=== PATIENT | male | born 1970 | race Two or more races ===

== ENCOUNTER 2020-01-03 11:17 | Inpatient (IN) | payer BC, MEDICAID, OTHER ==
[~2020-01-03] VITALS: Ht 167.6 cm; Wt 95.1 kg
[2020-01-03] MEDS ORDERED: SODIUM CHLORIDE 0.9% 1,000 ML IVB ONE (11:59)
[2020-01-03] MEDS ORDERED: PROCHLORPERAZINE EDISYLATE 5 MG/ML 2ML VIAL IV ONE (12:45)
[2020-01-03 13:06] LABS: Basophils # (auto) 0.1 10 ^3/uL (0-0.2); Basophils % (auto) 0.5 % (0.0-2.0); Eosinophils # (auto) 0.1 10 ^3/uL (0-0.8); Eosinophils % (auto) 0.4 % (0.0-7.0); Hematocrit 49.8 % (41.0-53.0); Hemoglobin 17.2 g/dL (13.5-17.5); Lymphocytes # (auto) 1.6 10 ^3/uL (0.4-5.4); Lymphocytes % (auto) 11.9 % (10.0-50.0); Mean Corpuscular Hemoglobin 30.7 pg (28.0-32.0); Mean Corpuscular Hgb Conc. 34.6 g/dL (32.0-36.0); Mean Corpuscular Volume 88.9 fL (80.0-100.0); Monocytes # (auto) 0.8 10 ^3/uL (0-1.3); Monocytes % (auto) 5.8 % (0.0-12.0); Neutrophils % (auto) 81.4 % (37.0-80.0); Nucleated Red Blood Cells % 0.8 %; Platelet Count (auto) 222 10^3/uL (140-450); Red Blood Cells 5.61 10^6/uL (4.5-5.90); Red Cell Distribution Width 13.3 % (11.8-14.3); White Blood Cell 13.5 10^3/uL (4.4-10.8)
[2020-01-03 13:23] LABS: Albumin 3.7 g/dL (3.4-5.0); Anion Gap 7 (5-15); Blood Urea Nitrogen 19 mg/dL (7-18); Calcium 7.7 mg/dL (8.5-10.1); Carbon Dioxide 22 mmol/L (21-32); Chloride 112 mmol/L (98-107); Glucose 133 mg/dL (74-106); Magnesium 2.2 mg/dL (1.6-2.6); Potassium 3.4 mmol/L (3.5-5.1); Sodium 141 mmol/L (136-145)
[2020-01-03 13:29] LABS: Alanine Aminotransferase 73 U/L (16-61); Alkaline Phosphatase 111 U/L (45-117); Aspartate Aminotransferase 36 U/L (15-37); BUN/Creatinine Ratio 20.4; Bilirubin, Total 0.8 mg/dL (0.2-1.0); GFR African American 110 mL/min; GFR Non-African American 91 mL/min; Total Protein 7.2 g/dL (6.4-8.2)
[2020-01-03] MEDS ORDERED: POTASSIUM EFFERVESENT TAB 25 MEQ PO ONE (13:45)
[2020-01-03 13:49] LABS: Urine WBC None Seen /hpf (0 - 3)
[2020-01-03 14:07] LABS: Urine Bacteria NONE SEEN /hpf (None Seen); Urine Blood Negative /uL (Negative); Urine Mucus FEW (None Seen); Urine Specific Gravity 1.018 (1.001-1.035)
[2020-01-03] MEDS ORDERED: LORazepam 2MG/ML-1ML VIAL IV ONE (14:15)
[2020-01-03] MEDS ORDERED: MECLIZINE HCL 25 MG TAB PO ONE ×2 (14:15→17:30)
[2020-01-03] MEDS ORDERED: FUROSEMIDE 20 MG/2 ML VIAL IV ONE (18:45)
[2020-01-03] MEDS ORDERED: ONDANSETRON HCL 4 MG/2 ML VIAL IV PRN (20:15)
[2020-01-03] MEDS ORDERED: ACETAMINOPHEN 500 MG TAB PO PRN (20:15)
[2020-01-03] MEDS ORDERED: MORPHINE SULF INJ 2 MG/ML SYRINGE 1ML IV PRN ×2 (20:15)
[2020-01-03] MEDS ORDERED: HYDROcodone-ACET 5/325MG TAB PO PRN (20:15)
[2020-01-03] MEDS ORDERED: NITROGLYCERIN 0.4 MG SL TAB SL PRN (20:15)
[2020-01-03 21:30] VITALS: BP 123/67
[2020-01-03] MEDS: MECLIZINE HCL 25 MG TAB PO SCH (21:58)
[2020-01-03 22:10] VITALS: BP 123/67
[2020-01-04 04:28] VITALS: BP 109/63
[2020-01-04] MEDS: MECLIZINE HCL 25 MG TAB PO SCH ×4 (05:56→22:18)
[2020-01-04 09:00] VITALS: BP 126/71
[2020-01-04 13:00] VITALS: BP 107/72
[2020-01-04 15:46] LABS: Basophils # (auto) 0.1 10 ^3/uL (0-0.2); Basophils % (auto) 0.7 % (0.0-2.0); Eosinophils # (auto) 0.2 10 ^3/uL (0-0.8); Eosinophils % (auto) 2.1 % (0.0-7.0); Hematocrit 50.2 % (41.0-53.0); Hemoglobin 17.3 g/dL (13.5-17.5); Lymphocytes # (auto) 1.7 10 ^3/uL (0.4-5.4); Lymphocytes % (auto) 20.7 % (10.0-50.0); Mean Corpuscular Hemoglobin 30.5 pg (28.0-32.0); Mean Corpuscular Hgb Conc. 34.4 g/dL (32.0-36.0); Mean Corpuscular Volume 88.5 fL (80.0-100.0); Monocytes # (auto) 0.6 10 ^3/uL (0-1.3); Monocytes % (auto) 7.5 % (0.0-12.0); Neutrophils # (auto) 5.8 10 ^3/uL (1.6-8.6); Nucleated Red Blood Cells % 0.2 %; Platelet Count (auto) 227 10^3/uL (140-450); Red Blood Cells 5.67 10^6/uL (4.5-5.90); Red Cell Distribution Width 13.3 % (11.8-14.3); White Blood Cell 8.4 10^3/uL (4.4-10.8)
[2020-01-04 16:03] LABS: Calcium 8.1 mg/dL (8.5-10.1); Magnesium 2.6 mg/dL (1.6-2.6); Potassium 3.3 mmol/L (3.5-5.1)
[2020-01-04 16:07] LABS: BUN/Creatinine Ratio 15.6; Phosphorus 2.4 mg/dL (2.5-4.90)
[2020-01-04 17:00] VITALS: BP 142/80
[2020-01-04] MEDS ORDERED: POTASSIUM PHOSPHATE 22 MEQ in SODIUM CHL 0.9% 100 ML IV ONE (18:00)
[2020-01-04] MEDS ORDERED: POTASSIUM CHL 20 Meq TABLET PO ONE (18:00)
[2020-01-04] MEDS ORDERED: CYANOCOBALAMIN (B-12) 1000 MCG/1 ML VIAL SUBCUT ONE ×2 (18:00→18:30)
[2020-01-04] MEDS ORDERED: LORazepam 2MG/ML-1ML VIAL IV PRN (18:30)
[2020-01-04 22:00] VITALS: BP 139/86
[2020-01-04] MEDS ORDERED: ATORVASTATIN 20 MG TAB PO SCH ×2 (22:00)
[2020-01-05 04:59] VITALS: BP 135/84
[2020-01-05] MEDS: MECLIZINE HCL 25 MG TAB PO SCH ×2 (05:43→14:27)
[2020-01-05 07:07] LABS: BUN/Creatinine Ratio 19.5; Calcium 8.1 mg/dL (8.5-10.1); Potassium 3.5 mmol/L (3.5-5.1)
[2020-01-05 09:00] VITALS: BP 130/77
[2020-01-05] MEDS ORDERED: ASPirin 81 mg TAB PO SCH (10:00)
[2020-01-05] MEDS ORDERED: CYANOCOBALAMIN (B-12) 1000 MCG/1 ML VIAL SUBCUT SCH (10:00)
[2020-01-05 13:00] VITALS: BP 141/89
[2020-01-05] MEDS ORDERED: POTASSIUM CHL 20 Meq TABLET PO ONE (13:00)
== END 2020-01-05 16:20 | disposition home or self-care (01) | DRG 149 ==
LOC: EDBD 11:17 → ER 11:17 → OVERFLOW 11:18 → WEST WING 21:10
PROVIDERS: ADMIT Nurse Practitioner Acute Care; ATTEND Internal Medicine
DX: H81.10 Benign paroxysmal vertigo, unspecified ear (principal); E87.6 Hypokalemia; E11.65 Type 2 diabetes mellitus with hyperglycemia; F17.210 Nicotine dependence, cigarettes, uncomplicated; E78.5 Hyperlipidemia, unspecified; D72.829 Elevated white blood cell count, unspecified; E66.9 Obesity, unspecified; E53.8 Deficiency of other specified B group vitamins; Z83.3 Family history of diabetes mellitus; Z90.49 Acquired absence of other specified parts of digestive tract; Z82.49 Family history of ischemic heart disease and other diseases of the circulatory system; Z68.33 Body mass index [BMI] 33.0-33.9, adult
CPT/HCPCS: 36415; 70450; 70545; 70551; 71045; 80048; 80053; 80061; 81001; 82607; 83036; 83735; 84100; 84443; 84484; 85025; 93005; 93306; 93886; 96361; 96365; 96375; G0378

== ENCOUNTER → 2020-04-29 | Outpatient (CLI) | payer BC ==
[2020-04-29 09:52] LABS: BUN/Creatinine Ratio 21.9; Bilirubin, Total 1.1 mg/dL (0.2-1.0); CRP High Sensitivity 0.06 mg/dL (< 0.3); Calcium 8.8 mg/dL (8.5-10.1); Total Protein 7.5 g/dL (6.4-8.2)
== END | disposition home or self-care (01) ==
LOC: LAB 08:50
PROVIDERS: ATTEND Internal Medicine
DX: Z12.5 Encounter for screening for malignant neoplasm of prostate (principal); M19.012 Primary osteoarthritis, left shoulder; M54.2 Cervicalgia; R42 Dizziness and giddiness; K76.0 Fatty (change of) liver, not elsewhere classified
CPT/HCPCS: 36415; 80053; 80061; 84153; 85652; 86141

== ENCOUNTER → 2020-10-02 | Outpatient (CLI) | payer MEDICAID | END | disposition home or self-care (01) | LOC: LAB 09:26 | PROVIDERS: ATTEND Internal Medicine | DX: E78.5 Hyperlipidemia, unspecified (principal); R00.2 Palpitations; R42 Dizziness and giddiness | CPT/HCPCS: 36415; 85379; 85652; 86141 ==

== ENCOUNTER → 2022-06-15 | Outpatient (CLI) | payer MEDICAID ==
[2022-06-15 09:23] LABS: Basophils # (auto) 0.1 10 ^3/uL (0-0.2); Eosinophils # (auto) 0.2 10 ^3/uL (0-0.8); Lymphocytes # (auto) 1.6 10 ^3/uL (0.4-5.4); Mean Corpuscular Hemoglobin 30.1 pg (28.0-32.0); Monocytes # (auto) 0.6 10 ^3/uL (0-1.3); Monocytes % (auto) 7.5 % (0.0-12.0); Neutrophils # (auto) 4.9 10 ^3/uL (1.6-8.6); Nucleated Red Blood Cells % 0.1 %; White Blood Cell 7.4 10^3/uL (4.4-10.8)
[2022-06-15 09:25] LABS: Basophils % (auto) 0.8 % (0.0-2.0); Eosinophils % (auto) 2.9 % (0.0-7.0); Hematocrit 50.7 % (41.0-53.0); Hemoglobin 17.5 g/dL (13.5-17.5); Lymphocytes % (auto) 22.2 % (10.0-50.0); Mean Corpuscular Hgb Conc. 34.6 g/dL (32.0-36.0); Neutrophils % (auto) 66.6 % (37.0-80.0); Red Blood Cells 5.83 10^6/uL (4.5-5.90)
[2022-06-15 09:30] LABS: Urine Bacteria NONE SEEN /hpf (None Seen); Urine Blood Negative /uL (Negative); Urine Specific Gravity 1.017 (1.001-1.035); Urine WBC <1 /hpf (0 - 3)
[2022-06-15 09:52] LABS: Calcium 8.8 mg/dL (8.5-10.1); Potassium 3.9 mmol/L (3.5-5.1); Uric Acid 5.9 mg/dL (3.5-7.2)
[2022-06-15 09:57] LABS: BUN/Creatinine Ratio 18.8; Bilirubin, Total 1.1 mg/dL (0.2-1.0); Total Protein 7.6 g/dL (6.4-8.2)
== END | disposition home or self-care (01) ==
LOC: LAB 09:02
PROVIDERS: ATTEND Internal Medicine
DX: I10 Essential (primary) hypertension (principal); M25.519 Pain in unspecified shoulder; R42 Dizziness and giddiness; E66.9 Obesity, unspecified; R51.0 Headache with orthostatic component, not elsewhere classified
CPT/HCPCS: 36415; 80053; 80061; 81001; 84153; 84550; 85025; 85652

== ENCOUNTER → 2022-07-30 | Outpatient (CLI) | payer MEDICAID ==
[2022-07-30 11:52] LABS: Albumin 4.3 g/dL (3.4-5.0)
[2022-07-30 11:56] LABS: Bilirubin, Direct 0.2 mg/dL (0-0.2); Bilirubin, Total 1.4 mg/dL (0.2-1.0); Total Protein 7.6 g/dL (6.4-8.2)
== END | disposition home or self-care (01) ==
LOC: LAB 10:36
PROVIDERS: ATTEND Internal Medicine
DX: E78.5 Hyperlipidemia, unspecified (principal); N52.9 Male erectile dysfunction, unspecified
CPT/HCPCS: 36415; 80076; 84403

== ENCOUNTER → 2022-10-05 | Outpatient (CLI) | payer MEDICAID ==
[2022-10-05 11:17] LABS: Albumin 4.2 g/dL (3.4-5.0); Bilirubin, Direct 0.3 mg/dL (0-0.2); Bilirubin, Total 1.2 mg/dL (0.2-1.0); Total Protein 7.5 g/dL (6.4-8.2)
== END | disposition home or self-care (01) ==
LOC: LAB 09:32
PROVIDERS: ATTEND Internal Medicine
DX: I10 Essential (primary) hypertension (principal)
CPT/HCPCS: 36415; 80061; 80076; 83036

== ENCOUNTER → 2024-09-25 | Outpatient (CLI) | payer MEDICAID ==
[2024-09-25 09:23] LABS: Urine Bacteria None Seen /hpf (None Seen)
[2024-09-25 09:35] LABS: Basophils # (auto) 0.1 10 ^3/uL (0-0.2); Eosinophils # (auto) 0.2 10 ^3/uL (0-0.8); Hemoglobin 18.2 g/dL (13.5-17.5); Mean Corpuscular Volume 88.3 fL (80.0-100.0); Monocytes # (auto) 0.6 10 ^3/uL (0-1.3); Monocytes % (auto) 7.5 % (0.0-12.0)
[2024-09-25 09:37] LABS: Basophils % (auto) 0.8 % (0.0-2.0); Hematocrit 52.6 % (41.0-53.0); Lymphocytes # (auto) 1.6 10 ^3/uL (0.4-5.4); Mean Corpuscular Hemoglobin 30.5 pg (28.0-32.0); Mean Corpuscular Hgb Conc. 34.6 g/dL (32.0-36.0); Neutrophils # (auto) 5.1 10 ^3/uL (1.6-8.6); Neutrophils % (auto) 67.7 % (37.0-80.0); Nucleated Red Blood Cells % 0.8 %; Platelet Count (auto) 212 10^3/uL (140-450); Red Blood Cells 5.95 10^6/uL (4.5-5.90); Red Cell Distribution Width 13.8 % (11.8-14.3); White Blood Cell 7.5 10^3/uL (4.4-10.8)
[2024-09-25 09:52] LABS: Urine Blood Negative /uL (Negative); Urine Clarity Clear (Clear); Urine Color Light-Yellow (Yellow); Urine Mucus FEW (None Seen); Urine Protein, UAD Negative (Negative); Urine Specific Gravity 1.021 (1.001-1.035); Urine Squamous Epithelial Cell None Seen /hpf (<5); Urine Urobilinogen Normal (Negative); Urine WBC 1 /HPF (0-3); Urine pH 5.5 (5.0-9.0)
[2024-09-25 10:07] LABS: Alanine Aminotransferase 33 U/L (7-40); Anion Gap 6 (5-15); Aspartate Aminotransferase 14 U/L (13-40); BUN/Creatinine Ratio 13.1 (10.0-20.0); Blood Urea Nitrogen 14 mg/dL (9-23); CRP High Sensitivity 0.04 mg/dL (<1.0); Carbon Dioxide 29 mmol/L (20-31); Chloride 106 mmol/L (98-107); Potassium 4.4 mmol/L (3.5-5.1); Sodium 141 mmol/L (136-145)
[2024-09-25 10:08] LABS: HDL Cholesterol 43 mg/dL (40-59)
[2024-09-25 10:09] LABS: Bilirubin, Total 0.9 mg/dL (0.2-1.0); Total Protein 7.4 g/dL (5.7-8.2)
[2024-09-25 10:11] LABS: Albumin 4.8 g/dL (3.2-4.8); Alkaline Phosphatase 139 U/L (46-116); Cholesterol 207 mg/dL (< 200); Glucose 111 mg/dL (74-106); LDL Cholesterol 144 mg/dL (< 100); Triglycerides 190 mg/dL (< 150)
[2024-09-25 10:15] LABS: Erythrocyte Sedimentation Rate 2 mm/hr (0-20)
== END | disposition home or self-care (01) ==
LOC: LAB 09:04
PROVIDERS: ATTEND Internal Medicine
DX: Z12.5 Encounter for screening for malignant neoplasm of prostate (principal); I10 Essential (primary) hypertension; R42 Dizziness and giddiness; Z00.00 Encounter for general adult medical examination without abnormal findings
CPT/HCPCS: 36415; 80053; 80061; 81001; 82306; 83036; 84153; 84443; 85025; 85652; 86141

== ENCOUNTER → 2024-10-10 | Outpatient (CLI) | payer MEDICAID | END | disposition home or self-care (01) | LOC: LAB 09:04 | PROVIDERS: ATTEND Internal Medicine | DX: E55.9 Vitamin D deficiency, unspecified (principal) | CPT/HCPCS: 82306 ==

== ENCOUNTER → 2024-11-21 | Outpatient (CLI) | payer MEDICAID ==
[2024-11-21 08:57] LABS: Albumin 4.7 g/dL (3.2-4.8); Total Protein 7.4 g/dL (5.7-8.2)
[2024-11-21 09:01] LABS: Bilirubin, Direct 0.4 mg/dL (<0.3); Bilirubin, Total 1.4 mg/dL (0.2-1.0)
== END | disposition home or self-care (01) ==
LOC: LAB 08:03
PROVIDERS: ATTEND Internal Medicine
DX: I10 Essential (primary) hypertension (principal); R42 Dizziness and giddiness
CPT/HCPCS: 36415; 80076